=== PATIENT | male | born 1945 | race Caucasian/White ===

== ENCOUNTER → 2019-08-26 | Outpatient (CLI) | payer MEDICARE, OTHER ==
--- NOTE | 2019-08-27 09:09 | Diagnostic Imaging Report ---
Left knee MRI without contrast. History: Knee pain. Decreased range of motion. Pain not responding to conservative management. Arthritis. Comparison: None. Technique: Multiplanar multi-sequence MRI of the knee without contrast. Findings: Medial compartment: Maceration of the medial meniscus. Meniscal tissue is displaced to the periphery. Advanced full-thickness articular cartilage loss in the medial compartment with underlying bone marrow edema. Peripheral marginal osteophytes. The medial collateral ligament complex is intact. Lateral compartment: Complex tear involving the anterior horn and body segments of the lateral meniscus. Regions of full-thickness articular cartilage loss in the lateral compartment with underlying bone marrow edema. Peripheral marginal osteophytes. The lateral collateral ligament complex is intact. Intercondylar notch: Chronic appearing anterior cruciate ligament tear. Degeneration and scarring of the posterior cruciate ligament. Patellofemoral compartment: Articular cartilage fraying and deep fissuring with regions of full-thickness articular cartilage loss in the patellofemoral compartment with underlying bone marrow edema. Peripheral marginal osteophytes. Extensor mechanism: The quadriceps and patellar tendons are normal. Other findings: There is a joint effusion and synovitis. There is no acute fracture, subluxation or avascular necrosis. 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 Complex lateral meniscus tear with moderate degenerative arthrosis in the lateral compartment of the knee. Articular cartilage fraying and deep fissuring with regions of full-thickness articular cartilage loss in the patellofemoral compartment. Chronic appearing anterior cruciate ligament tear. Signed by: Dr. Chris Pal M.D. on 08/27/2019 9:05 AM
== END ==
LOC: MRI 13:51
DX: M25.562 Pain in left knee (principal)

== ENCOUNTER → 2020-02-05 | Day surgery (SDC) | payer MEDICARE, OTHER ==
[2020-02-02 12:17] LABS: BASOPHILS # (AUTO) 0.1 (0.0-0.1); BASOPHILS % 1.2 % (0.0-1.0); EOSINOPHILS # (AUTO) 0.2 (0.0-0.4); HEMATOCRIT 41.1 % (38.2-49.6); HEMOGLOBIN 13.8 g/dL (14.0-18.0); LYMPHOCYTES # (AUTO) 1.6 (1.0-3.2); MEAN CORPUSCULAR HEMOGLOBIN 31.6 pg (28-32); MEAN CORPUSCULAR HGB CONC 33.6 g/dL (31-35); MEAN CORPUSCULAR VOLUME 94.1 fL (81-99); MONOCYTES # (AUTO) 0.6 (0.2-0.8); MONOCYTES % 9.7 % (4.4-11.3); NEUTROPHILS # (AUTO) 3.3 (2.1-6.9); NEUTROPHILS % 57.9 % (38.7-80.0); PLATELET COUNT 206 x10e3/uL (140-360); RED BLOOD COUNT 4.37 x10e6/uL (4.3-5.7); RED CELL DISTRIBUTION WIDTH 12.4 % (11.7-14.4)
[~2020-02-05] MED LIST: ALLOPURINOL300 MG PO; AMLODIPINE BESY10 MG PO; ASPIRIN EC81 MG PO; ATORVASTATIN CA10 MG PO; CEFAZOLIN SOD 1 GM/NS 50ML 50 ML IV ONE; CIALIS20 MG PO; GLUCAGON FOR INJ 1 MG VIAL ONE; HYDROCHLOROTHIA25 MG PO; HYOSCYAMINE 0.125 MG TAB ONE; LEVEMIR100 UNIT/1 SC; LIDOCAINE HCL 2% LOCAL INJ 5 ML SDV VIAL INJ ONE; LOSARTAN POTAS100 MG PO; METOPROLOL SUCC50 MG PO; MULTI-VITAMIN1 EACH PO; PANTOPRAZOLE SO40 MG PO; POTASSIUM CITR10 MEQ PO; PROPOFOL IV EMULSION 10 MG/ML 20 ML VIAL ONE; TOVIAZ8 MG PO; TRADJENTA5 MG PO; TRULICITY1.5 MG/0.5 SC
[2020-02-05 19:15] VITALS: BP 104/71
== END | disposition home or self-care (01) ==
LOC: OR 12:59
PROVIDERS: ATTEND Internal Medicine Gastroenterology
DX: Z09 Encounter for follow-up examination after completed treatment for conditions other than malignant neoplasm (principal); D12.7 Benign neoplasm of rectosigmoid junction; K57.30 Diverticulosis of large intestine without perforation or abscess without bleeding; K64.8 Other hemorrhoids; I10 Essential (primary) hypertension; E11.9 Type 2 diabetes mellitus without complications; Z01.810 Encounter for preprocedural cardiovascular examination; Z01.812 Encounter for preprocedural laboratory examination; Z20.828 Contact with and (suspected) exposure to other viral communicable diseases; Z79.82 Long term (current) use of aspirin; Z79.4 Long term (current) use of insulin; Z85.46 Personal history of malignant neoplasm of prostate
CPT/HCPCS: 36415 ×2; 45380; 45381; 45385; 82948; 85025; 88305; 93005; J0690; U0002; J1610; J2001

== ENCOUNTER → 2020-03-09 | Day surgery (SDC) | payer MEDICARE, OTHER ==
[~2020-03-09] MED LIST changes: +ELIGARD22.5 MG INJ; -GLUCAGON FOR INJ 1 MG VIAL ONE; +SCOPOLAMINE 1.5 MG PATCH ONE
[2020-03-09 16:00] VITALS: BP 112/76
== END | disposition home or self-care (01) ==
LOC: OR 11:51
PROVIDERS: ATTEND Internal Medicine Gastroenterology
DX: Z09 Encounter for follow-up examination after completed treatment for conditions other than malignant neoplasm (principal); D12.8 Benign neoplasm of rectum; K57.30 Diverticulosis of large intestine without perforation or abscess without bleeding; K63.89 Other specified diseases of intestine; K64.8 Other hemorrhoids; K21.9 Gastro-esophageal reflux disease without esophagitis; C61 Malignant neoplasm of prostate; I10 Essential (primary) hypertension; E78.5 Hyperlipidemia, unspecified; E11.9 Type 2 diabetes mellitus without complications; N20.0 Calculus of kidney; Z01.812 Encounter for preprocedural laboratory examination; Z20.822 Contact with and (suspected) exposure to COVID-19; Z79.82 Long term (current) use of aspirin; Z79.4 Long term (current) use of insulin
CPT/HCPCS: 45380; 45384; 45385; 88305; J0690; J2001; J2704; U0002